=== PATIENT | male | born 1960 | race African-American/Black ===

== ENCOUNTER 2022-04-15 12:41 | Outpatient (REF) | payer OTHER, SELFPAY ==
[2022-04-15 14:16] LABS: Estimated Glomerular Filt Rate 52; Uric Acid 9.7 mg/dL (3.4-7.0)
== END 2022-04-15 12:42 | disposition home or self-care (01) ==
LOC: HO.10HDL 12:41
PROVIDERS: Visit Provider Internal Medicine Rheumatology
DX: M17.0 Bilateral primary osteoarthritis of knee (principal); M47.816 Spondylosis without myelopathy or radiculopathy, lumbar region; N18.30 Chronic kidney disease, stage 3 unspecified; M10.9 Gout, unspecified; Z79.899 Other long term (current) drug therapy
CPT/HCPCS: 20610; 36415; 82565; 84550; 99202